=== PATIENT | male | born 1990 | race Caucasian/White ===

== ENCOUNTER 2018-11-05 13:40 | Emergency (ER) | payer SELFPAY ==
[~2018-11-05] VITALS: Ht 177.8 cm; Wt 74.8 kg
[2018-11-05] MEDS ORDERED: METHOCARBAMOL 500MG TABLET PO ONE (14:30)
[2018-11-05] MEDS ORDERED: KETOROLAC 30MG/ML VIAL IM ONE (14:30)
[2018-11-05 14:40] VITALS: BP 124/78
== END 2018-11-05 17:57 | disposition home or self-care (01) ==
LOC: ER 13:58
DX: S16.1XXA Strain of muscle, fascia and tendon at neck level, initial encounter (principal); V89.2XXA Person injured in unspecified motor-vehicle accident, traffic, initial encounter; Y93.89 Activity, other specified; Y92.89 Other specified places as the place of occurrence of the external cause; Y99.8 Other external cause status
CPT/HCPCS: 72125; 96372; 99284; J1885